=== PATIENT | male | born 1950 | race Hispanic/Latino ===

== ENCOUNTER → 2018-03-20 | Outpatient (CLI) | payer OTHER ==
[~2018-03-20] MED LIST: CANA300T PO; ETAN50PE SQ; FLUT16H NASAL; FLUT30CR3 TP; GLIM4TAB3 PO; LOSA1TAB7 PO; TAMS-1 PO; [UNRECOGNIZED DRUG - CODE] TP
== END | disposition home or self-care (01) ==
LOC: RAH 14:36
PROVIDERS: ATTEND Internal Medicine
DX: M47.896 Other spondylosis, lumbar region (principal); M48.07 Spinal stenosis, lumbosacral region; M41.84 Other forms of scoliosis, thoracic region
CPT/HCPCS: 72082; 72100